=== PATIENT | male | born 1960 | race Caucasian/White ===

== ENCOUNTER 2024-06-21 17:34 | Inpatient (IN) | payer OTHER, SELFPAY ==
[2024-06-21] VITALS (10 sets, daily range): BP systolic 91–152; BP diastolic 63–113; BMI 24.8; BMI 25.0
--- NOTE | 2024-06-21 11:18 | ED.GENMED ---
History of Present Illness
<Kely Shaffer PA-C - Last Filed: 06/21/24 18:01>
General
Chief Complaint: Abdominal Pain
Source: patient
Exam Limitations: none
Time Seen by Provider: 06/21/24 11:18
Nursing documentation reviewed up to this point in time: agreed with
History of Present Illness
History of Present Illness:
Patient is a 64-year-old male presenting with right abdominal pain. Patient reports intermittent pain in upper abdomen over the past 2 weeks which has always self resolved. However�patient states that last night prior to bed he had a much more
intense pain in his upper abdomen. This did subside and patient was able to sleep. This morning around 9:30 AM while he was driving his car he had a severe, stabbing pain in his right upper abdomen. This does sometimes radiate to mid back. Pain
has been constant since this morning. He did call his primary care provider who recommended he be seen in the emergency department.
Patient denies any associated nausea, vomiting, fever, chills, or chest pain. No urinary symptoms. He denies any shortness of breath�although does state that it is painful to take a deep breath.
Patient cannot remember what he ate for dinner last night.
Review of Systems
<Kely Shaffer PA-C - Last Filed: 06/21/24 18:01>
Review of Systems
Allergies reviewed?: Yes
All Other Systems: ROS reviewed and negative except as documented in HPI and ROS
Phy Exam
<Kely Shaffer PA-C - Last Filed: 06/21/24 18:01>
Physical Exam
Physical Exam:
Vitals: Patient's vital signs are stable. Afebrile
General: Patient is writhing in pain.
Skin: Warm and dry, no rashes or lesions
Head: Normocephalic, atraumatic
Eyes: Sclera nonicteric. EOMs intact. No nystagmus.
Throat: Protecting airway
Neck: Normal ROM, no cervical spine tenderness, no meningismus
Cardiac: Regular rate and rhythm, no murmurs.
Pulm: Lungs clear bilaterally. Shallow breathing due to pain.
Abdomen: Abdomen soft. Moderate right upper quadrant tenderness with voluntary guarding. Positive Rendon sign. No CVA tenderness
Extremities: No evidence of cyanosis or edema. Palpable and equal distal pulses.
Neuro: AAOx3. CN II-XII intact. No focal neurologic deficits.
Psychiatric: Normal affect.
Course
<Kely Shaffer PA-C - Last Filed: 06/21/24 18:01>
Orders/Labs/Results
Orders:
Orders
06/21/24 11:32
0.9% Sodium Chloride 1000 ml [Nss] 1,000 ml IV BOLUS
HYDROmorphone [Dilaudid] 0.5 mg IV NOW STA
Ondansetron Injectable [Zofran] 4 mg IV NOW STA
06/21/24 11:35
Electrocardiogram (*1) Urgent
Reason for Study: QTc Monitoring
EKG- Treatment ONCE
US Abdomen Complete/Upper Urgent
Comment:
Reason For Exam: RUQ pain radiating to back
06/21/24 11:50
Complete Blood Count/With Diff Urgent
06/21/24 13:35
Comprehensive Metabolic Panel Urgent
Lipase Urgent
06/21/24 14:15
Comprehensive Metabolic Panel Urgent
Lipase Urgent
06/21/24 14:25
CT Chest/abd/pelvis Angio W/wo Urgent
Comment:
Reason For Exam: Upper abdominal pain/ back pain
06/21/24 14:28
Diltiazem HCl [Cardizem] 5 mg IV NOW STA
06/21/24 15:00
Diltiazem 125 mg/125 ml Nss [Cardizem] 125 mg in 125 ml IV PER PROTOCOL
Initial dose in mg/hr, then titrate:: 5
Titrate to keep:: Heart rate 80-100 bpm
Titrate by mg/hr:: 5 mg/hr
Frequency of titrations (minutes):: 15
Maximum dose in mg/hr:: 15
06/21/24 16:33
Admit/Transfer Patient As Directed
Co-Sign Provider:
Level of Care: Inpatient admission
Assign to:: IMU- Intermediate Care
Physician / Group: Stefan Ceballos
Diagnosis: A-Fib RVR
Reason for Hospitalization: A-Fib RVR
Expected length of stay greater than two midnights?: Yes
ELOS- Estimated Length of Stay in days: 3
I certify the patient meets the requirements for IP care: Yes
06/21/24 16:34
PRN Pain Medication Management As Directed
May give lesser potent ordered pain med per pt: Yes
preference::
Protocol:: Medication orders for pain may be administered in a
manner that supports deferring to patient preference
when the pt is:
- Requesting an ordered lesser potent pain medication.
Least to most potent pain medications are defined
as: acetaminophen < NSAID < tramadol < opioids
(morphine, oxycodone, hydromorphone).
- Requesting a lesser dose of the same medication IF
ORDERED.
- Requesting a less intrusive route of administration
if both routes are prescribed by the provider (PO <
IV).
06/21/24 16:35
Code Status As Directed
Resuscitation Status: Full Code
06/21/24 17:00
NT-proBNP Stat
Troponin I Stat
06/21/24 17:03
HYDROmorphone [Dilaudid] 0.25 mg IV Q4HPRN PRN
Ketorolac [Toradol] 15 mg IV Q6HPRN PRN
Abnormal Lab Results
06/21/24
11:50
WBC 12.4 H 10^3/uL
(4.8-10.8)
MCH 32.0 H pg
(27.0-31.0)
Abs Immat Gran (auto) 0.1 H 10^3/uL
(0-0.05)
Absolute Neuts (auto) 10.5 H 10^3/uL
(1.4-6.5)
Absolute Lymphs (auto) 1.1 L 10^3/uL
(1.2-3.4)
Absolute Monos (auto) 0.7 H 10^3/uL
(0.1-0.6)
Neutrophils % 84.0 H %
(42.2-75.2)
Lymphocytes % 8.8 L %
(20.5-51.1)
06/21/24 11:50
06/21/24 14:15
Vital Signs
Initial and Last Documented VS:
Initial Vital Signs
Temp Pulse Resp Pulse Ox
98.3 F 96 18 99
06/21/24 10:58 06/21/24 10:58 06/21/24 10:58 06/21/24 10:58
Last Documented Vital Signs
Temp Pulse Resp BP Pulse Ox
98.3 F 105 26 122/96 96
06/21/24 10:58 06/21/24 17:15 06/21/24 17:15 06/21/24 17:00 06/21/24 17:15
<Liban Burdick, DO - Last Filed: 06/21/24 15:51>
Orders/Labs/Results
Orders:
Orders
06/21/24 11:32
0.9% Sodium Chloride 1000 ml [Nss] 1,000 ml IV BOLUS
HYDROmorphone [Dilaudid] 0.5 mg IV NOW STA
Ondansetron Injectable [Zofran] 4 mg IV NOW STA
06/21/24 11:35
Electrocardiogram (*1) Urgent
Reason for Study: QTc Monitoring
EKG- Treatment ONCE
US Abdomen Complete/Upper Urgent
Comment:
Reason For Exam: RUQ pain radiating to back
06/21/24 11:50
Complete Blood Count/With Diff Urgent
06/21/24 13:35
Comprehensive Metabolic Panel Urgent
Lipase Urgent
06/21/24 14:15
Comprehensive Metabolic Panel Urgent
Lipase Urgent
06/21/24 14:25
CT Chest/abd/pelvis Angio W/wo Urgent
Comment:
Reason For Exam: Upper abdominal pain/ back pain
06/21/24 14:28
Diltiazem HCl [Cardizem] 5 mg IV NOW STA
06/21/24 15:00
Diltiazem 125 mg/125 ml Nss [Cardizem] 125 mg in 125 ml IV PER PROTOCOL
Initial dose in mg/hr, then titrate:: 5
Titrate to keep:: Heart rate 80-100 bpm
Titrate by mg/hr:: 5 mg/hr
Frequency of titrations (minutes):: 15
Maximum dose in mg/hr:: 15
06/21/24 16:33
Admit/Transfer Patient As Directed
Co-Sign Provider:
Level of Care: Inpatient admission
Assign to:: IMU- Intermediate Care
Physician / Group: Stefan Ceballos
Diagnosis: A-Fib RVR
Reason for Hospitalization: A-Fib RVR
Expected length of stay greater than two midnights?: Yes
ELOS- Estimated Length of Stay in days: 3
I certify the patient meets the requirements for IP care: Yes
06/21/24 16:34
PRN Pain Medication Management As Directed
May give lesser potent ordered pain med per pt: Yes
preference::
Protocol:: Medication orders for pain may be administered in a
manner that supports deferring to patient preference
when the pt is:
- Requesting an ordered lesser potent pain medication.
Least to most potent pain medications are defined
as: acetaminophen < NSAID < tramadol < opioids
(morphine, oxycodone, hydromorphone).
- Requesting a lesser dose of the same medication IF
ORDERED.
- Requesting a less intrusive route of administration
if both routes are prescribed by the provider (PO <
IV).
06/21/24 16:35
Code Status As Directed
Resuscitation Status: Full Code
06/21/24 17:00
NT-proBNP Stat
Troponin I Stat
06/21/24 17:03
HYDROmorphone [Dilaudid] 0.25 mg IV Q4HPRN PRN
Ketorolac [Toradol] 15 mg IV Q6HPRN PRN
Abnormal Lab Results
06/21/24
11:50
WBC 12.4 H 10^3/uL
(4.8-10.8)
MCH 32.0 H pg
(27.0-31.0)
Abs Immat Gran (auto) 0.1 H 10^3/uL
(0-0.05)
Absolute Neuts (auto) 10.5 H 10^3/uL
(1.4-6.5)
Absolute Lymphs (auto) 1.1 L 10^3/uL
(1.2-3.4)
Absolute Monos (auto) 0.7 H 10^3/uL
(0.1-0.6)
Neutrophils % 84.0 H %
(42.2-75.2)
Lymphocytes % 8.8 L %
(20.5-51.1)
06/21/24 11:50
06/21/24 14:15
Vital Signs
Initial and Last Documented VS:
Initial Vital Signs
Temp Pulse Resp Pulse Ox
98.3 F 96 18 99
06/21/24 10:58 06/21/24 10:58 06/21/24 10:58 06/21/24 10:58
Last Documented Vital Signs
Temp Pulse Resp BP Pulse Ox
98.3 F 105 26 122/96 96
06/21/24 10:58 06/21/24 17:15 06/21/24 17:15 06/21/24 17:00 06/21/24 17:15
<Kely Shaffer PA-C - Last Filed: 06/21/24 18:01>
MDM/Problems Addressed
Differential Diagnosis Includes:
Not limited to: Biliary colic, cholecystitis, choledocholithiasis, cholangitis, pancreatitis, GERD, peptic ulcer, etc.
MDM/Problems Addressed:
64-year-old male presenting with severe right upper quadrant pain with radiation around to mid back. No associated fever, chills, nausea/vomiting. No urinary symptoms. Patient with history of intermittent upper abdominal pain becoming constant
this morning. Vital stable. Exam as above. Patient very uncomfortable, writhing in pain. Abdomen is soft with moderate right upper quadrant tenderness and positive Rendon sign. There is no rash or ecchymoses. Differential broad at this time
although high suspicion for biliary etiology given history and physical exam considerations include including biliary colic, cholecystitis, choledocholithiasis, pancreatitis, etc. No chest pain or shortness of breath. Will check basic labs, lipase
and obtain abdominal ultrasound. Will treat pain and give IV fluids. Will closely monitor and reassess.
Chronic conditions affecting care:
N/A
Acute Exacerbation and/or Progression of Chronic Illness:
N/A
<Kely Shaffer PA-C - Last Filed: 06/21/24 18:01>
*Radiology
Radiology exam reviewed: preliminary read by ED provider and radiology read reviewed (No aortic abnormality, concern for malignant process in the liver vs metastatic disease)
*Pulse Oximetry
Patient hypoxic: no
*EKG
Interpreted by ED Provider?: Yes
EKG Intrepretation Date: 06/21/24
Interpretation: abnormal
Comparison EKG: no comparison EKG present
Heart Rate: 95
Rate: normal
Rhythm: a-fib
[place]: normal axis
Interval: normal interval
QRS Pattern: normal QRS
Ischemia: no ischemia
*Electron Beam Photo Mask Technician Interpretation
Rate: tachycardiac
Interpretation: abnormal
Heart Rate: 121
Rhythm: a-fib
*Critical Care Note
Total Time (30-74mins, 75-104mins- exclusive of procedures): Not Applicable
<Kely Shaffer PA-C - Last Filed: 06/21/24 18:01>
Patient Management
Discussion with other providers: Hospitalist
Escalation/DeEscalation of care consider admission/obs:
Admit to hospitalist for new onset A-fib w/ RVR
<Kely Shaffer PA-C - Last Filed: 06/21/24 18:01>
Update Note
Update Note:
Update 12:30PM: In to reassess patient at bedside. Patient appears much more comfortable following pain medication. CBC noted. Mild leukocytosis. CMP and US pending.
Update 2:15 PM: Chemistry reviewed. No abnormalities. Ultrasound without any acute findings. EKG does show rate controlled atrial fibrillation. This is new for patient. Into reassess patient at bedside with attending-does report improvement in
symptoms although given the symptoms and negative abdominal workup will obtain CTA chest/abdomen/pelvis to rule out aortic pathology. Patient heart rate did go into A-fib with RVR�will start Cardizem.
Update: CT report reviewed. No aortic pathology. Lesions noted in liver concerning for malignancy versus metastatic disease. Patient started on Cardizem drip for A-fib and will be admitted for further management. Accepted to hospitalist service
and stable condition.
ED Attending Note
<Kely Shaffer PA-C - Last Filed: 06/21/24 18:01>
-
Portions of this chart may have been created with voice recognition software.� Occasional wrong word or��sound alike� substitutions may have occurred due to the inherent limitations of voice recognition software.
<Liban Burdick DO - Last Filed: 06/21/24 15:51>
ED Attending Note
Patient seen and examined by attending physician: Yes
I performed a history and physical exam of patient and discussed management with resident, I reviewed resident's note and agree with documented findings and plan of care.: Yes
ED Attending Note:
I have reviewed and agree with history and treatment plan by Kely Prince. My exam revealed
Physical Exam
General: Afebrile
Neck: supple. no meningeal signs. normal posterior pharynx
Heart: s1/s2 tachycardia, irregular rhythm, no murmur. equal radial
pulses.
HEENT: Pupils equal round reactive to light, EOMI
Lungs: no acute respiratory distress. clear bilaterally
Abdomen: normal bowel sounds. Mild epigastric tenderness no CVAT
Neuro: alert and oriented. no focal neurological deficits cranial nerves II through XII intact
Skin: no rash
Psychiatric: well kept. interactive and cooperative
Extremities: no edema. no calf tenderness. negative homans. good distal pulses
Patient has abdominal pain of unclear etiology, liver masses seen on ultrasound and CT abdomen pelvis. Patient started on diltiazem drip for new onset A-fib. Admit for further evaluation.
Discharge Plan
Departure
Patient Disposition: Admit
Date of Disposition: 06/21/24
Time of Disposition: 16:14
Presentation/result/management discussed w/ accepting MD/DO: Hospitalist
Discharge Problem:
Atrial fibrillation with rapid ventricular response, Intractable upper abdominal pain
Interventions
Interventions:
*Risk Screen - Suicide Last Done: 06/21/24 10:58
*General Assessment Last Done: 06/21/24 11:47
*Neglect/Abuse Screening Last Done: 06/21/24 10:58
ED- Fall Risk Assessment Last Done: 06/21/24 11:54
*ED COVID-19 Vaccine History Last Done: 06/21/24 10:58
JJ-Gllwih-Htouauyxyb Assessment Last Done: 06/21/24 11:54
--- NOTE | 2024-06-21 11:48 | EDRN ---
Pt was driving his and developed in his abdomen in RUQ and some radiation/residual pain in back. Pt also feeling difficulty swalling in his sternal/epigastric area. Pain was worse last night was worse and knifelike at 9:30am today. pt has an
appt on .
[2024-06-21] MEDS: NSS 1000 IV (11:51)
[2024-06-21] MEDS: ZOFRAN 4 MG IV (11:51)
[2024-06-21] MEDS: DILAUDID 0.5 MG IV (11:52)
[2024-06-21 12:01] LABS: % Basophils 0.6 % (0-2); % Eosinophils 0.6 % (0-6); % Immature Granulocytes 0.4 % (0-0.5); % Lymphocytes 8.8 % (20.5-51.1); % Monocytes 5.6 % (1.7-9.3); Absolute Basophils 0.1 10^3/uL (0-0.2); Absolute Eosinophils 0.1 10^3/uL (0-0.7); Absolute Immature Granulocytes 0.1 10^3/uL (0-0.05); Absolute Lymphocytes 1.1 10^3/uL (1.2-3.4); Absolute Monocytes 0.7 10^3/uL (0.1-0.6); Absolute Neutrophils 10.5 10^3/uL (1.4-6.5); Hematocrit 44.2 % (39.0-52.0); Hemoglobin 15.4 g/dL (13.0-18.0); Mean Corp Hgb Conc. 34.8 g/dL (33.0-37.0); Mean Corpuscular Volume 91.9 fL (80.0-94.0); Mean Platelet Volume 9.8 fL (7.4-10.4); Nucleated Red Blood Cells % 0 % (-); Platelet Count 282 10^3/uL (130-400); Red Blood Cell Count 4.81 10^6/uL (4.70-6.10); Red Cell Dist. Width 13.4 % (11.5-14.5); White Blood Cell Count 12.4 10^3/uL (4.8-10.8)
--- NOTE | 2024-06-21 13:54 | EDRN ---
SST blood tube that was just drawn was deemed hemolyzed musician instrumental asked if ED PCT could redraw blood to send to lab.
[2024-06-21 14:12] LABS: ALT (SGPT) 33 U/L (0-50); AST (SGOT) 38 U/L (17-59); Albumin 3.9 g/dl (3.5-5.0); Alkaline Phosphatase 93 U/L (38-126); Blood Urea Nitrogen 13 mg/dl (9-20); Calcium 8.6 mg/dl (8.4-10.2); Carbon Dioxide 25 mmol/L (22-30); Chloride 105 mmol/L (98-107); Estimated Creatinine Clearance 92 ml/min; Glucose 74 mg/dl (70-99); Lipase 47 U/L (23-300); Potassium 4.3 mmol/L (3.5-5.1); Sodium 141 mmol/L (135-145); Total Bilirubin 0.7 mg/dl (0.2-1.3); Total Protein 6.3 g/dl (6.3-8.2); eGFR > 60.00
--- NOTE | 2024-06-21 14:15 | EDRN ---
Pt had SST hemolyzed and was just redrawn by [place] ED PCT at this time.
[2024-06-21 14:49] LABS: ALT (SGPT) 32 U/L (0-50); AST (SGOT) 39 U/L (17-59); Alkaline Phosphatase 94 U/L (38-126); Blood Urea Nitrogen 13 mg/dl (9-20); Calcium 8.9 mg/dl (8.4-10.2); Carbon Dioxide 24 mmol/L (22-30); Chloride 106 mmol/L (98-107); Estimated Creatinine Clearance 92 ml/min; Glucose 77 mg/dl (70-99); Lipase 42 U/L (23-300); Potassium 4.4 mmol/L (3.5-5.1); Sodium 141 mmol/L (135-145); Total Bilirubin 0.7 mg/dl (0.2-1.3); Total Protein 6.5 g/dl (6.3-8.2); eGFR > 60.00
[2024-06-21] MEDS: CARDIZEM 5 MG IV (15:50)
[2024-06-21] MEDS: CARDIZEM 125 IV (15:53)
--- NOTE | 2024-06-21 16:38 | HPS.HSE ---
Family Physician
-
Family Physician: Dioni Monroy
Chief Complaint
-
abdominal pain
History of Present Illness
HPI
64M seen at ER :
- intermittent pain in Rt upper abdomen over the past 2 weeks always resolved spontaneusly
- last night prior to bed he had a much more intense pain did subside and patient was able to sleep
- severe stabbing pain in Rt upper abdomen radiate to mid back and been constant since this AM.
EKG at ER : fast AF
ROS
- denies any associated nausea, vomiting, fever, chills, or chest pain.
- no urinary symptoms.
- denies any shortness of breath
Medical History
Past Medical History
Past Medical History: Reports Psychiatric (depression )
Past Surgical History: Reports None
Social History
Tobacco: Non-smoker
Alcohol: Former (quit 10 yrs ago. Used to dring 1 6 packs per week for 20 yrs )
Employment: Employed ([employer] contractor )
Family History
Family History: Not pertinent
Allergies / Home Medications
Allergies reflects when Allergies were last updated in [employer].
Home Medications with original date entered in [employer]
Allergy/Medication List:
Allergies
Allergy/AdvReac Type Severity Reaction Status Date / Time
hayfever Allergy nasal Uncoded 06/21/24 11:06
congestion
Home Medications
divalproex 500 mg tablet,delayed release 1,000 mg PO DAILY 06/21/24
Review of Systems
-
Constitutional: Reports No Symptoms
EENT: Reports No Symptoms
Respiratory: Reports No Symptoms
Cardiac: Reports No Symptoms
Abdomen/GI: Reports Abdominal Pain
: Reports No Symptoms
Musculoskeletal: Reports No Symptoms
Skin: Reports No Symptoms
Neurological: Reports No Symptoms
Endocrine: Reports No Symptoms
Hematologic/Lymphatic: Reports No Symptoms
Psych: Reports No Symptoms
Physical Exam
Vital Signs
Vital Signs
Temp Pulse Resp BP Pulse Ox
98.3 F 146 30 137/108 98
06/21/24 10:58 06/21/24 16:15 06/21/24 16:15 06/21/24 16:01 06/21/24 16:15
Physical Exam
General: Well Developed, Well Nourished and No Apparent Distress
HEENT: NormoCephalic, Moist mucous membranes and Atraumatic
Respiratory: Clear
Cardiac: Irregular Rhythm and Tachycardia
GI: Soft, Non Tender, Non Distended and Normal Bowel Sounds; No Organomegaly
Rectal: Deferred by Provider
Musculoskeletal: No Clubbing, No Cyanosis and No Edema
Skin: No Rash
Neuro: Nonfocal/grossly intact
Laboratory Results
-
06/21/24 11:50
06/21/24 14:15
Laboratory Results
Total Bilirubin 0.7 mg/dl (0.2-1.3) 06/21/24 14:15
AST 39 U/L (17-59) 06/21/24 14:15
ALT 32 U/L (0-50) 06/21/24 14:15
Alkaline Phosphatase 94 U/L (38-126) 06/21/24 14:15
Lipase 42 U/L (23-300) 06/21/24 14:15
Data Reviewed
-
CT Scan: Report Reviewed by me
Medical Tests (Nuc Med, Echo, EKG etc): Report Reviewed by me
Lab Data: Labs Reviewed by me
Impression/Plan
-
Reviewed VS: irregular HR 138 BP 140/100
Data
WCC 12.4
Unremarkable CMP
Pending TPNI
proBNP
EKG
ATRIAL FIBRILLATION
ABNORMAL ECG
NO PREVIOUS ECGS AVAILABLE
CT Chest/abd/pelvis Angio W/wo
No evidence of thoracic/abdominal aortic aneurysm or dissection.
At least three similar appearing lesions within the right lobe of the liver largest measuring 9.2 cm which do not have imaging characteristics suggestive of benign hemangiomas. Most likely differential diagnostic possibilities include multifocal
hepatocellular carcinoma, biliary tract carcinoma or metastatic disease.
Evaluation of intestinal tract markedly limited without oral contrast, cannot exclude intestinal tract mass.
Small simple left renal cysts and additional subcentimeter low-attenuation left renal lesion too small to characterize.
Prostate gland at least top normal in size.
Suspected indeterminate approximate 0.8 cm left adrenal nodule.
NO PRIOR hospitalist admission:
ASSESSMENT & PLAN
Fast AF
Hemodynamically stable
- c/w Diltiazem gtt
- check TPNI, pro BNP
- ECHO
- CBC card consult
Acute intermittent abdominal pain. No N/V/D. Denied wt loss
Abn CT:
Questionable intestinal mass
Questionable multifocal hepatocellular carcinoma, biliary tract carcinoma or metastatic disease.
Of note: No prior HX Hep C. Quit ETOH 10 yrs ago ( used to drink 1 6 packs beer per week for 20 yrs)
- full liquid and ADAT
- PRN low dose IV Dilaudid for analgesia
- MRI AP with contrast - if abn MRI - to consult GI
HX depression and anxiety on Depakote
- stable
DVT Px: LMWH
Full code
IMU
--- NOTE | 2024-06-21 16:50 | EDRN ---
Pt teary eyed about diagnosis and in pain at 10/10 at this time in RUQ of abdomen. Family has just arrived and pt is awaiting them to come back to see him.
[2024-06-21] MEDS: DILAUDID 0.25 MG IV (17:35)
[2024-06-21 18:46] LABS: NT-proBNP 585 pg/ml; Troponin I < 0.012 ng/ml
[2024-06-21] MEDS: HEPARIN 5000 UNITS SC (20:36)
[2024-06-21] MEDS: TORADOL 15 MG IV (21:22)
--- NOTE | 2024-06-21 22:50 | PTCARENOTE ---
pt admitted from the ED- pt is AAOx3- pt is able to make needs known. VSS- a-fib on the monitor. cardizem gtt infusing at 5mg/hr. HR 90s-100s at rest. when patient ambulating or on the phone, HR increases to 130s-140s. pt is asymptomatic. pt able to
walk into room without issues. ambulating to BR. pt in 8/10 pain to right lower abdomen. stating the 0.25mg IV dilaudid dose he got in the ER only helped for 30 minutes. reached out to covering CHIEF MEDICAL TECHNOLOGIST to change dose, no new orders at this time. IV
toradol given per OCT, pt reports some relief. pt tearful at times with diagnosis. positive environment and support given to patient.
[2024-06-22] VITALS (12 sets, daily range): BP systolic 108–151; BP diastolic 55–99
[2024-06-22 00:18] LABS: Troponin I < 0.012 ng/ml
[2024-06-22] MEDS: DILAUDID 0.25 MG IV ×3 (01:18→17:10)
[2024-06-22] MEDS: TORADOL 15 MG IV (05:05)
[2024-06-22 05:15] LABS: Hemoglobin 15.3 g/dL (13.0-18.0); Mean Corp Hgb Conc. 34.8 g/dL (33.0-37.0); Mean Corpuscular Hgb 32.3 pg (27.0-31.0); Mean Platelet Volume 9.9 fL (7.4-10.4); Platelet Count 258 10^3/uL (130-400); Red Blood Cell Count 4.73 10^6/uL (4.70-6.10); Red Cell Dist. Width 13.4 % (11.5-14.5)
[2024-06-22 05:33] LABS: Blood Urea Nitrogen 13 mg/dl (9-20); Carbon Dioxide 26 mmol/L (22-30); Chloride 104 mmol/L (98-107); Estimated Creatinine Clearance 83 ml/min; Glucose 88 mg/dl (70-99); Potassium 4.6 mmol/L (3.5-5.1); Sodium 143 mmol/L (135-145); eGFR > 60.00
[2024-06-22 05:44] LABS: Troponin I < 0.012 ng/ml
[2024-06-22 06:15] LABS: TSH 4.11 uIU/ml (0.47-4.68)
--- NOTE | 2024-06-22 08:30 | CON.CAR ---
Addendum entered and electronically signed by Henrik Carroll MD 06/22/24 10:40:
64 yo male with no significant cardiac history is admitted with abdominal pain. There is concern for liver malignancy, and he will undergo MRI today. We are consulted for new Afib with RVR. He is asymptomatic with the Afib. Exam with irregular
rhythm, no murmurs, no edema. Tele: A fib 60s-70s.
Will focus on rate control as possible liver malignancy is evaluated. Transition IV diltiazem to PO. Check echo.
CHADS2-VASC =0. No OAC recommended at this time.
Original Note:
Consultation
Consultation Request
Date/Time Consultation Requested: 06/21/241999
Date/Time Consultation Performed: 06/22/24 08
Requesting Provider: Sia BARAHONA
Performing Provider: Janis BARAHONA for Dr. Carroll
Reason for Consultation: AFIB
Medical History
-
Chief Complaint: abdominal pain
History of Present Illness:
64 y/o male with depression and anxiety who is here for severe abdominal pain (RUQ) that started yesterday AM around 1030 AM. Imaging reveals liver lesions concerning for malignancy. We are consulted for AFIB with RVR, which is rate-controlled on
diltiazem drip at 5 mg/hr. He is not symptomatic with the atrial fibrillation.
Past Medical History
Past Medical History: Psychiatric (depression and anxiety )
Social History
Tobacco: Non-Smoker
Alcohol: Former (used to drink 6 pack per week- but not in many years)
Personal:
Living: With Family
Family History
Family History: Early CAD (mom [place] 55, dad [place] in his 30's)
Allergies / Home Medications
Allergy/AdvReac Type Severity Reaction Status Date / Time
hayfever Allergy nasal Uncoded 06/21/24 11:06
congestion
�Medication �Instructions �Recorded �Confirmed �Type
divalproex 500 mg tablet,delayed 1,000 mg PO DAILY Seizures 06/21/24 06/21/24 History
release
zolpidem 10 mg tablet (Ambien) 10 mg PO HS PRN sleep 06/21/24 06/21/24 History
Review of Systems
-
History Source: Patient
All other systems: Negative unless noted
Abdomen/GI: Abdominal Pain
Physical Exam
Vital Signs
Temp Pulse Resp BP Pulse Ox
97.7 F 85 17 137/97 94
06/22/24 05:13 06/22/24 06:00 06/22/24 06:00 06/22/24 06:00 06/21/24 22:00
Lab Results
06/22/24 05:04
06/22/24 05:04
Troponin I < 0.012 ng/ml 06/22/24 05:04
Skd-L-Pwtteotmrav Pept 585 pg/ml 06/21/24 17:00
Zaj-O-Eneyprdinql Pept Cancelled 06/21/24 17:00
Physical Exam
General: Well Developed, Well Nourished and No Apparent Distress
HEENT: Normocephalic and Anicteric
Respiratory: Clear and Non Labored Respirations
Cardiac: Irregular Rhythm
Musculoskeletal: No Edema
Skin: Warm and Dry
Neuro: AO x 3
Psych: Calm
Impression / Plan
-
Abdominal pain: severe yesterday, now appears comfortable
-getting pain meds
-Liver lesions: concerning for malignancy- plan is MRI today for further evaluation
-work-up per IM
AFIB: new diagnosis
-in setting of acute pain/stress
-appears to be paroxysmal as there are some brief periods of SR on monitor
-on IV diltiazem drip, which requires intensive monitoring- will adjust to PO meds today
-[id number] score is 0, so OAC not required at this time
-TSH WNL, echo today
Anxiety, depression:
-takes divalproex and nefazodone as OP
Data Reviewed
-
EKG: Tracing Personally Visualized and interpreted (AFIB)
CT Scan: Report Reviewed by me (At least three similar appearing lesions within the right lobe of the liver largest measuring 9.2 cm)
Medical Tests (Nuc Med, Echo etc): Other (echo ordered)
Labs: Labs Reviewed by me
[2024-06-22] MEDS: HEPARIN 5000 UNITS SC ×2 (08:33→19:57)
[2024-06-22] MEDS: DEPAKOTE (12 HR RELEASE) 1000 MG PO (08:33)
[2024-06-22] MEDS: CARDIZEM CD 120 MG PO (09:25)
[2024-06-22 09:27] LABS: Glycohemoglobin (HgbA1c) 5.5 % (4.0-5.6)
--- NOTE | 2024-06-22 10:31 | W.PN.HOSP.TC ---
Today's Communication/Plan
-
seen note
Assessment / Plan
Assessment / Plan
CT Chest/abd/pelvis Angio W/wo
No evidence of thoracic/abdominal aortic aneurysm or dissection.
At least three similar appearing lesions within the right lobe of the liver largest measuring 9.2 cm which do not have imaging characteristics suggestive of benign hemangiomas. Most likely differential diagnostic possibilities include multifocal
hepatocellular carcinoma, biliary tract carcinoma or metastatic disease.
Evaluation of intestinal tract markedly limited without oral contrast, cannot exclude intestinal tract mass.
Small simple left renal cysts and additional subcentimeter low-attenuation left renal lesion too small to characterize.
Prostate gland at least top normal in size.
Suspected indeterminate approximate 0.8 cm left adrenal nodule.
MRI abd
1. Multiple space occupying liver lesions with the largest measuring 9.6 cm in the right hepatic lobe, most suspicious for hepatic metastases. Hepatocellular carcinoma or cholangiocarcinoma with satellite lesions would be an alternative
consideration.
2. Circumferential wall thickening and signal alteration of the distal esophagus above the gastroesophageal junction. While findings could be related to inflammatory changes of a small hiatal hernia, a distal esophageal malignancy may be present.
Consider direct visualization/upper endoscopy for further characterization.

1. Suspected metastatic liver disease
Suspected primary esophageal cancer
-CT c/a/p findings as above
-MRI abd showing DENICE in liver with potential primary in distal esophagus vs billary tract
-Oncology and GI consulted for further evaluation
-Maintain on oral oxycodone with PRN dialudid for pain control
2. Paroxysmal afib w RVR
-off of cardiazem drip
-started on oral rate control med
-low CHADvasc and no indication for AC
-Cardiology help appreciated
3. Anxiety
-provide xanax prn
4. H/o depression
-on depakote
DVT Px: LMWH
Full code
Total time spent : 52 mins
Anticipated Discharge: 24 - 48 hours
Subjective/Interval History
-
Date of Service: June 22, 2024
no abd pain
denies n/v
afebrile
Objective Data
-
Labs:
Laboratory Results
06/22/24
05:04
WBC 10.0
Hgb 15.3
Hct 44.0
Plt Count 258
Sodium 143
Potassium 4.6
Chloride 104
Carbon Dioxide 26
BUN 13
Creatinine 1.0
Glucose 88
Calcium 9.0
Vital Signs:
Vital Signs
Temp Pulse Resp BP Pulse Ox
97.7 F 87 15 127/94 98
06/22/24 07:30 06/22/24 10:00 06/22/24 08:00 06/22/24 10:00 06/22/24 08:00
I&O
06/21/24 06/22/24 06/23/24
06:59 06:59 06:59
Output Total 600 / 600
Balance -600 / -600
Review of Systems
-
Respiratory: Reports No Symptoms
Cardiac: Reports No Symptoms
Abdomen/GI: Reports No Symptoms
Physical Exam
-
General: No Apparent Distress and Comfortable
HEENT: Negative Oxygen
Respiratory: Clear to Auscultation
Cardiac: Regular Rhythm and S1/S2; Negative Murmur or Rub
GI: Soft, Nontender, Nondistended and Normal Bowel Sounds
Musculoskeletal: No Edema
Neuro: Awake, Alert, Oriented, No Motor Deficits and Nonfocal/Grossly Intact
Psych: Calm
[2024-06-22] MEDS: ROXICODONE 10 MG PO ×3 (10:38→22:47)
[2024-06-22] MEDS: ALPRAZOLAM ODT 0.5 MG PO (11:13)
--- NOTE | 2024-06-22 11:17 | CON.ONC ---
Impression
Impression
64 y/o M with upper abdominal pain and clinical suspicion for liver malignancy vs metastatic disease:
# Abdominal pain
- Abd/pelvis CT suggestive of multifocal HCC, biliary tract cancer, or metastatic disease
- Abdomen MRI for further evaluation of hepatic lesions seen on CT and other abdominal structures
- Check tumor markers (AFP, CA 19-9 and CEA)
- LFTs and Lipase WNL
- Hep B/C pending
- Will follow along
# Paroxismal Afib with RVR
- Likely in the setting of pain
- Cardiology following
- Continue Diltiazem
# Anxiety/depression
- Continue home meds
Patient History
History of Present Illness
64 y/o male former smoker and drinker presenting with intermittent upper abdominal pain since 2 weeks ago that resolved spontaneously. Pt is very stressed with his job and felt his abdominal pain was because of that. Starting Thursday06/20/24, the
pain became severe (predominantly in the RUQ) radiating to his back and aggravated with breathing and leaning forward. Denies weight loss, change in appetite/bowel movements/color of urine but notes difficulty swallowing food recently. Has no
history of liver disease, family history is negative for cancer. Patient was found to have new Afib in the ER, started on Diltiazem. Pt notes he quit drinking 10 years ago and has since been drinking one can of beer per day if any (the most being 6
cans/week). Also quit smoking 30 years ago.
Chest/abd/pelvis CT:
Large peripherally enhancing soft tissue lesion in the right hepatic lobe measuring 7.5 * 8.5 * 9.2 cm with smaller similar-appearing lesions in the right lobe
0.8 cm indeterminate left adrenal nodule
Evaluation of intestinal tract markedly limited without oral contrast, cannot exclude intestinal tract mass.
Small simple left renal cysts and additional subcentimeter low-attenuation left renal lesion too small to characterize.
Prostate gland at least top normal in size.
Past-Medical/Surgical History
Past medical/surgical history:
Pneumonia
Knee surgery?
Anxiety/depression on divalproex and zolpidem
Patient Medication
�Medication �Instructions �Recorded �Confirmed �Last Taken �Type
divalproex 500 mg tablet,delayed 1,000 mg PO DAILY Seizures 06/21/24 06/21/24 Unknown History
release
zolpidem 10 mg tablet (Ambien) 10 mg PO HS PRN sleep 06/21/24 06/21/24 06/20/24 History
Active Medications
Generic Name Dose Route Start Last Admin
Trade Name Freq PRN Reason Stop Dose Admin
Alprazolam 0.25 mg 06/22/24 10:10
Alprazolam 0.25 Mg Oral Disintegrating Tab PO 07/20/24 10:09
Q6HPRN PRN
anxiety
Diltiazem HCl 120 mg 06/22/24 10:00 06/22/24 09:25
Diltiazem 120 Mg Extended Release (24 H) Capsule PO 07/20/24 09:59 120 mg
DAILY EVIN Administration
Divalproex Sodium 1,000 mg 06/22/24 08:00 06/22/24 08:33
Divalproex 500 Mg Delayed Release (12 Hr) Tablet PO 07/20/24 07:59 1,000 mg
DAILY EVIN Administration
Heparin Sodium 5,000 units 06/21/24 20:04 06/22/24 08:33
Heparin 5,000 Units/Ml 1 Ml Vial SC 07/19/24 20:03 5,000 units
Q12 EVIN Administration
Hydromorphone HCl 0.25 mg 06/22/24 10:15
Hydromorphone 0.25 Mg/0.5 Ml Syringe IV 07/05/24 17:02
Q4HPRN PRN
Breathrough pain
Oxycodone HCl 5 mg 06/22/24 10:14
Oxycodone 5 Mg Regular Release Tablet PO 07/06/24 10:13
Q4HPRN PRN
mod pain
Oxycodone HCl 10 mg 06/22/24 10:14 06/22/24 10:38
Oxycodone 10 Mg Regular Release Tablet PO 07/06/24 10:13 10 mg
Q4HPRN PRN Administration
sev pain
Polyethylene Glycol 17 grams 06/23/24 08:00
Polyethylene Glycol Powder 17 Grams Packet PO 07/21/24 07:59
DAILY EVIN
Sodium Chloride 0 flush 06/21/24 21:00
Sodium Chloride 0.9% (Flush) Syringe IV 07/19/24 20:59
PER PROTOCOL EVIN
Review of Systems
-
History Source: Patient
Constitutional: Reports No Symptoms
EENT: Reports No Symptoms
Respiratory: Reports No Symptoms
Cardiac: Reports No Symptoms
GI: Reports Abdominal Pain
: Reports No Symptoms
Musculoskeletal: Reports No Symptoms
Skin: Reports No Symptoms
Neuro: Reports No Symptoms
Endocrine: Reports No Symptoms
Hematologic/Lymphatic: Reports No Symptoms
Allergy / Immunology: Reports No Symptoms
Psych: Reports Anxious
Physical Exam
-
General: Well Developed, Well Nourished and No Apparent Distress
Cardiology: Normal Sinus Rhythm, S1 and S2
Pulmonary: Clear
GI: Soft and Hepatomegaly
Genito-Urinary: No Costovertebral Tenderness
Musculoskeletal: No Clubbing, No Cyanosis and No Edema
Neurology: Non Focal
Psych: Anxious
Labs
Lab Results
WBC 10.0 10^3/uL (4.8-10.8) 06/22/24 05:04
RBC 4.73 10^6/uL (4.70-6.10) 06/22/24 05:04
Hgb 15.3 g/dL (13.0-18.0) 06/22/24 05:04
Hct 44.0 % (39.0-52.0) 06/22/24 05:04
MCV 93.0 fL (80.0-94.0) 06/22/24 05:04
MCH 32.3 pg (27.0-31.0) H 06/22/24 05:04
MCHC 34.8 g/dL (33.0-37.0) 06/22/24 05:04
RDW 13.4 % (11.5-14.5) 06/22/24 05:04
Plt Count 258 10^3/uL (130-400) 06/22/24 05:04
MPV 9.9 fL (7.4-10.4) 06/22/24 05:04
Abs Immat Gran (auto) 0.1 10^3/uL (0-0.05) H 06/21/24 11:50
Absolute Neuts (auto) 10.5 10^3/uL (1.4-6.5) H 06/21/24 11:50
Absolute Lymphs (auto) 1.1 10^3/uL (1.2-3.4) L 06/21/24 11:50
Absolute Monos (auto) 0.7 10^3/uL (0.1-0.6) H 06/21/24 11:50
Absolute Eos (auto) 0.1 10^3/uL (0-0.7) 06/21/24 11:50
Absolute Basos (auto) 0.1 10^3/uL (0-0.2) 06/21/24 11:50
Immature Gran % 0.4 % (0-0.5) 06/21/24 11:50
Neutrophils % 84.0 % (42.2-75.2) H 06/21/24 11:50
Lymphocytes % 8.8 % (20.5-51.1) L 06/21/24 11:50
Monocytes % 5.6 % (1.7-9.3) 06/21/24 11:50
Eosinophils % 0.6 % (0-6) 06/21/24 11:50
Basophils % 0.6 % (0-2) 06/21/24 11:50
Creatinine 1.0 mg/dL (0.7-1.3) 06/22/24 05:04
Vital Signs
Vital Signs
Temp Pulse Resp BP Pulse Ox
97.7 F 87 15 127/94 98
06/22/24 07:30 06/22/24 10:00 06/22/24 08:00 06/22/24 10:00 06/22/24 08:00
--- NOTE | 2024-06-22 13:37 | CM ---
Patient seen at bedside in IMU. Patient states that he lives with his family in a 2 story home with no DME at home. Patient PCP Dr. Monroy and patient stated that he uses the [facility] in [place] and he does not have any needs at this
time. Patient was independent of ADL's and IADL's prior to admission. CM will continue to follow for discharge planning needs.
Plan; home with no needs at this time.
[2024-06-22 14:49] LABS: AFP Male/Tumor Marker 2.17 ng/ml
--- NOTE | 2024-06-22 15:20 | PTOTSP ---
Therapist spoke with the patient, who denies issues with mobility and exercises regularly. Patient is agreeable to PT signing off at this time and is aware our services are available if needs arise.
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
--- NOTE | 2024-06-22 16:58 | PTCARENOTE ---
Patient AOx3. Patient tearful intermittently support provided. A fib with periods of NSR on tele. Patient tolerating full liquid diet. Plan is for NPO at midnight for procedure tomorrow. Stand by assist when ambulating. Call smith within reach and
bed in lowest position.
--- NOTE | 2024-06-22 20:29 | PTCARENOTE ---
Pt received from [facility] RN. Pt AAOx3, pleasant and talking with staff. NSR on monitor currently, HR 64. Pt on RA, lungs clear to auscultation. NPO @ midnight tonight. HS oral care done by Pt. Pt rate abd pain 3/10 at the time being. Call light in
reach. Pt denies further needs at this time.
[2024-06-23] VITALS (14 sets, daily range): BP systolic 91–146; BP diastolic 46–102
[2024-06-23] MEDS: ROXICODONE 10 MG PO (05:13)
[2024-06-23 06:05] LABS: ALT (SGPT) 29 U/L (0-50); AST (SGOT) 33 U/L (17-59); Albumin 3.9 g/dl (3.5-5.0); Alkaline Phosphatase 79 U/L (38-126); Blood Urea Nitrogen 18 mg/dl (9-20); Calcium 9.2 mg/dl (8.4-10.2); Carbon Dioxide 25 mmol/L (22-30); Chloride 102 mmol/L (98-107); Direct Bilirubin 0.1 mg/dl (0.0-0.4); Estimated Creatinine Clearance 83 ml/min; Glucose 92 mg/dl (70-99); Potassium 4.9 mmol/L (3.5-5.1); Sodium 139 mmol/L (135-145); Total Bilirubin 0.6 mg/dl (0.2-1.3); Total Protein 6.4 g/dl (6.3-8.2); eGFR > 60.00
[2024-06-23 06:37] LABS: CEA 14.3 ng/ml
[2024-06-23 06:49] LABS: Hematocrit 42.6 % (39.0-52.0); Hemoglobin 14.7 g/dL (13.0-18.0); Mean Corp Hgb Conc. 34.5 g/dL (33.0-37.0); Mean Corpuscular Hgb 32.3 pg (27.0-31.0); Mean Corpuscular Volume 93.6 fL (80.0-94.0); Mean Platelet Volume 10.2 fL (7.4-10.4); Platelet Count 267 10^3/uL (130-400); Red Blood Cell Count 4.55 10^6/uL (4.70-6.10); Red Cell Dist. Width 13.7 % (11.5-14.5); White Blood Cell Count 8.8 10^3/uL (4.8-10.8)
[2024-06-23] MEDS: DEPAKOTE (12 HR RELEASE) 1000 MG PO (08:29)
[2024-06-23] MEDS: MIRALAX PO (08:29)
[2024-06-23] MEDS: CARDIZEM CD 120 MG PO (08:30)
--- NOTE | 2024-06-23 09:18 | W.PN.ONC ---
Today's Communication / Plan
-
Scheduled for EGD today
Awaiting CA 19-9
Impression
Impression
64 y/o M with upper abdominal pain and clinical suspicion for liver malignancy vs metastatic disease:
# Abdominal pain
- Abd/pelvis CT suggestive of multifocal HCC, biliary tract cancer, or metastatic disease
- Abdomen MRI: Multiple space occupying liver lesions with the largest measuring 9.6 cm in the right hepatic lobe, most suspicious for hepatic metastases. Hepatocellular carcinoma or cholangiocarcinoma with satellite lesions would be an alternative
consideration. Circumferential wall thickening and signal alteration of the distal esophagus above the gastroesophageal junction. While findings could be related to inflammatory changes of a small hiatal hernia, a distal esophageal malignancy may be
present.
- GI consulted, plan for EGD today
- AFP normal, HCC less likely
- CA 19-9 pending
- CEA elevated but non-specific for malignancy
- LFTs and Lipase WNL
- Hep B/C pending
- Discussed case with radiology yesterday and the plan for biopsy of liver lesion if other work-up nonsatisfactory
- Will follow along
# Paroxismal Afib with RVR
- Likely in the setting of pain
- Cardiology following
- Continue Diltiazem
# Anxiety/depression
- Continue home meds
Subjective/Objective
Subjective/Objective
Vital Signs:
Vital Signs
Temp Pulse Resp BP Pulse Ox
97.9 F 83 14 146/100 99
06/23/24 07:28 06/23/24 08:30 06/23/24 06:00 06/23/24 08:30 06/22/24 18:00
Lab Results:
Laboratory Data
WBC 8.8 10^3/uL (4.8-10.8) 06/23/24 06:09
Hgb 14.7 g/dL (13.0-18.0) 06/23/24 06:09
Plt Count 267 10^3/uL (130-400) 06/23/24 06:09
eGFR > 60.00 06/23/24 05:27
--- NOTE | 2024-06-23 10:00 | W.PN.HOSP.TC ---
Addendum entered and electronically signed by Bill dOell MD 06/23/24 13:51:
Oncology has recommended Predinsone 20mg/d short course to help with inflammation related to esophageal malignancy
Addendum entered and electronically signed by Bill Odell MD 06/23/24 10:05:
Correction:
transferred to tele
Original Note:
Today's Communication/Plan
-
see note
Assessment / Plan
Assessment / Plan
CT Chest/abd/pelvis Angio W/wo
No evidence of thoracic/abdominal aortic aneurysm or dissection.
At least three similar appearing lesions within the right lobe of the liver largest measuring 9.2 cm which do not have imaging characteristics suggestive of benign hemangiomas. Most likely differential diagnostic possibilities include multifocal
hepatocellular carcinoma, biliary tract carcinoma or metastatic disease.
Evaluation of intestinal tract markedly limited without oral contrast, cannot exclude intestinal tract mass.
Small simple left renal cysts and additional subcentimeter low-attenuation left renal lesion too small to characterize.
Prostate gland at least top normal in size.
Suspected indeterminate approximate 0.8 cm left adrenal nodule.
MRI abd
1. Multiple space occupying liver lesions with the largest measuring 9.6 cm in the right hepatic lobe, most suspicious for hepatic metastases. Hepatocellular carcinoma or cholangiocarcinoma with satellite lesions would be an alternative
consideration.
2. Circumferential wall thickening and signal alteration of the distal esophagus above the gastroesophageal junction. While findings could be related to inflammatory changes of a small hiatal hernia, a distal esophageal malignancy may be present.
Consider direct visualization/upper endoscopy for further characterization.

1. Suspected metastatic liver disease
Suspected primary esophageal cancer
-CT c/a/p findings as above
-MRI abd showing DENICE in liver with potential primary in distal esophagus vs billary tract
-AFP neg/ Hep panel & other tumor markers pending,.
-GI planning to do EGD today
-Plan for possible liver biopsy as well based on EGD findings,
-Maintain on oral oxycodone with PRN dialudid for pain control
2. Paroxysmal afib w RVR
-off of cardiazem drip, on oral cardizem 120mg/d
-started on oral rate control med
-low CHADvasc and no indication for AC
-Cardiology help appreciated
3. Anxiety
-provide xanax prn
-resume back home medication of nefazodone
4. H/o depression
-on depakote
DVT Px: LMWH
Full code
Transfer to med/surg
Anticipated Discharge: 24 - 48 hours
Subjective/Interval History
-
Date of Service: June 23, 2024
still have pain in the side
no nausea/vomiting
Objective Data
-
Labs:
Laboratory Results
06/23/24 06/23/24
05:27 06:09
WBC Cancelled 8.8
Hgb Cancelled 14.7
Hct Cancelled 42.6
Plt Count Cancelled 267
PT Pending
INR Pending
Sodium 139
Potassium 4.9
Chloride 102
Carbon Dioxide 25
BUN 18
Creatinine 1.0
Glucose 92
Calcium 9.2
Total Bilirubin 0.6
AST 33
ALT 29
Alkaline Phosphatase 79
Vital Signs:
Vital Signs
Temp Pulse Resp BP Pulse Ox
97.9 F 83 14 146/100 99
06/23/24 07:28 06/23/24 08:30 06/23/24 06:00 06/23/24 08:30 06/22/24 18:00
I&O
10/06/23/24 06/24/24
06:59 06:59 06:59
Intake Total 240 / 240
Output Total 1250 / 1250
Balance -1010 / -1010
Review of Systems
-
Respiratory: Reports No Symptoms
Cardiac: Reports No Symptoms
Abdomen/GI: Reports Abdominal Pain; Denies Nausea or Vomiting
Physical Exam
-
General: Comfortable; Negative Appears in Distress
HEENT: Negative Oxygen
Neuro: Awake, Alert and Oriented
--- NOTE | 2024-06-23 10:14 | W.PN.CD ---
Today's Communication / Plan
-
Continue PO Diltiazem
We will sign off at this time.
Please call back if afib recurs.
Please let us know when patient is being discharged and we will schedule follow-up
Impression / Plan
-
AFIB: new diagnosis
-in setting of acute pain/stress
-appears to be paroxysmal as there are some brief periods of SR on monitor
-initially on dilt drip, no PO
-[id number] score is 0, so OAC not required at this time
-TSH WNL, echo LVEF 60%, no valvular disease
Abdominal pain: severe yesterday, now appears comfortable
-getting pain meds
-Liver lesions: concerning for malignancy- plan is MRI today for further evaluation
-work-up per IM
Anxiety, depression:
-takes divalproex and nefazodone as OP
Subjective: Out of afib at 5pm yesterday. No events on tele since. No CV complaints this AM.
Physical Exam
Vital Signs/Labs
Vital Signs
Temp Pulse Resp BP Pulse Ox
97.9 F 83 14 146/100 99
06/23/24 07:28 06/23/24 08:30 06/23/24 06:00 06/23/24 08:30 06/22/24 18:00
06/22/24 06/23/24 06/24/24
06:59 06:59 06:59
Actual Weight 83.5 kg
06/23/24 06:09
06/23/24 05:27
TSH 4.11 uIU/ml (0.47-4.68) 06/22/24 05:04
06/21/24 06/21/24
17:00 17:00
Yqk-L-Tbdlcimwkyo Pept 585 Cancelled
LAB Results
06/21/24 06/21/24 06/22/24
17:00 23:16 05:04
Troponin I < 0.012 < 0.012 < 0.012
Physical Exam
Constitutional: No acute distress and Comfortable
Cardiovascular: Rhythm & rate is regular, Pedal edema is absent, JVD pressure is normal, S1S2 is normal and Murmur/rub/gallop absent
Respiratory: Respiratory effort normal and Lungs clear to auscul.
Data Reviewed
-
Date of Service: June 23, 2024
Medical Decision Making: Reviewed Test Results, Independent Historian Assessment, Test Interpretation and Review of Case with other Provider
EKG: Tracing Personally Visualized and interpreted
Echo: Report Reviewed by me
Labs: Labs Reviewed by me
Total Time Spent with Patient (in minutes): 35
[2024-06-23] MEDS: NON-FORMULARY ITEM 50 MG PO (11:48)
[2024-06-23] MEDS: MIRALAX 17 GRAMS PO (11:56)
--- NOTE | 2024-06-23 13:22 | PTCARENOTE ---
Rec'd pt this AM. Pt returned from EGD tearful, family arrived at bedside also tearful. Provided support to pt upset over new diagnosis metastatic cancer. vital signs stable. Pt requesting to go home today to follow up outpatient with oncology. RN
sent request to medical team. awaiting update.
[2024-06-23] MEDS: DELTASONE 20 MG PO (14:18)
[2024-06-23] MEDS: BENADRYL 25 MG PO (14:18)
[2024-06-23] MEDS: DULCOLAX 10 MG RECTAL (14:18)
--- NOTE | 2024-06-23 14:34 | CM ---
Patient with Dx esophageal mass, suspected metastatic liver disease.
Met with patient who was preparing for discharge.
The patient says he feels ready for discharge home today.
A family member will provide transport home.
No CM d/c needs identified.
Plan home today.
--- NOTE | 2024-06-23 15:59 | PTCARENOTE ---
Pt discharged to home. RN reviewed in detail discharge instructions including follow up appointments to be made and new medications plus changes to current medications. Pt read back the instructions to RN.
--- NOTE | 2024-06-23 16:05 | W.DCSUMMARY ---
Discharge Summary
Discharge Data
Date of Admission: 06/21/24
Date of Discharge: 06/23/24
-
Pending Results: No
Hospital Course
Discharging Physician : Dr Bill Odell
Disposition : Home
Primary care physician : Dr Dioni Monroy
Principal Discharge diagnosis :
Distal esophageal mass with suspected metastatic disease of the
Paroxysmal atrial fibrillation with rapid ventricular rate
Chronic Discharge diagnosis :
Anxiety/depression
Hospital Course :
Patient is 64-year-old male with no mentioned past medical history came to ER for having right upper abdomen mild pain, this was not associated with any nausea vomiting fever chills. Patient underwent CT chest abdomen pelvis in ER which showed
suspected liver mass with potentially metastatic disease versus primary liver cancer. A follow-up MRI abdomen was done showing space-occupying lesion in liver with potential primary distal esophagus. Oncology and GI was involved in care.
AFP/hepatitis panel were negative. Patient underwent an EGD which showed esophageal mass which was biopsied. Postprocedure patient was recommended to be maintained on soft diet. Oncology also recommended short course of oral prednisone to help
with malignancy related esophageal inflammation/dysphagia.
Patient also had new paroxysmal A-fib with rapid ventricular rate and required to be on Cardizem drip. Cardiology was involved in care and due to lower JR-vasc score patient did not warrant any need of anticoagulation . Patient was able to be
transition to diltiazem at discharge.
Patient to follow-up with GI and oncology in office.
Important imaging findings :
None
Procedure findings :
None
Discharge Plan
-
Patient Disposition: Home (Routine Discharge)
Discharge Diagnosis/Procedures: Distal esophageal mass, suspected metastatic disease of liver
Condition: Fair
Diet: Other diet
Additional Diets: Mechanical soft diet
Activity: As tolerated
Driving Restrictions: As prior to admission
Bathing Restrictions: OK to Shower
Referrals:
Dioni Monroy MD [Family Provider] - in one week
Allen Walters MD [Active] - in one to two weeks
Prescriptions:
New
diltiazem HCl 120 mg Capsule,Extended Release 24hr
120 mg PO DAILY Qty: 30 2RF
oxycodone 10 mg Tablet
10 mg PO Q4HPRN PRN (Reason: mod sev pain) Qty: 15 0RF
Rx Instructions:
Take Half tablet for mod pain
prednisone 20 mg tablet
20 mg PO DAILY Qty: 7 0RF
Continued
divalproex 500 mg Tablet,Delayed Release (Dr/Ec)
1,000 mg PO DAILY
zolpidem [Ambien] 10 mg Tablet
10 mg PO HS PRN (Reason: sleep)
Changed
nefazodone 50 mg tablet
25 mg PO DAILY Qty: 0 0RF
Discharge Orders:
Discharge Patient (As Directed); Ordered 06/23/24
Ordered By: Bill Odell
Discharge Date and Time
Discharge Date/Time: 06/23/24 16:07
Print Language: [place] IRISH
[2024-06-23 18:40] LABS: Hepatitis B Surface Antigen Negative (Negative)
[2024-06-23 18:41] LABS: Hepatitis B Core Ab, IgM Negative (Negative)
[2024-06-23 18:58] LABS: Hepatitis B Core Ab, Total Negative (Negative); Hepatitis B Surface Antibody Negative; Hepatitis C Antibody Negative (Negative)
[2024-06-25 03:18] LABS: CA 19-9 <2 U/mL (<=35)
== END 2024-06-23 16:07 | disposition home or self-care (01) | DRG 437 ==
LOC: IMU 17:34
PROVIDERS: Nurse Practitioner Family; Physician Assistant; ADMITTING PHYSICIAN Internal Medicine; ATTENDING PHYSICIAN Hospitalist; CONSULT PHYSICIAN Internal Medicine; CONSULT PHYSICIAN Internal Medicine Gastroenterology; CONSULT PHYSICIAN Internal Medicine Hematology & Oncology; EMERGENCY PHYSICIAN Emergency Medicine; FAMILY PHYSICIAN Family Medicine
PROC: 0DB68ZX Excision of Stomach, Via Natural or Artificial Opening Endoscopic, Diagnostic (ICD-10-PCS; 2024-06-23)
DX: C22.0 Liver cell carcinoma (principal); I48.0 Paroxysmal atrial fibrillation; C22.1 Intrahepatic bile duct carcinoma; N28.1 Cyst of kidney, acquired; F41.9 Anxiety disorder, unspecified; F32.A Depression, unspecified; K29.70 Gastritis, unspecified, without bleeding; R93.3 Abnormal findings on diagnostic imaging of other parts of digestive tract
CPT/HCPCS: 88305; 71275; 74174; 74183; 76700; 80048; 80053; 82105; 82248; 82378; 83036; 83690; 83880; 84443; 84484; 85025; 85027; 86301; 86704; 86705; 86706; 86803; 87340; 88342; 88360; 93005; 93306; 96361; 96374; 96375; 99285; A9575; Q9967

== ENCOUNTER → 2024-08-10 07:46 | Outpatient (REF) | payer OTHER, SELFPAY | LOC: PET 07:46 | PROVIDERS: ATTENDING PHYSICIAN Internal Medicine Hematology & Oncology | DX: C78.7 Secondary malignant neoplasm of liver and intrahepatic bile duct (principal); C15.5 Malignant neoplasm of lower third of esophagus | CPT/HCPCS: 78815; A9552 ==

== ENCOUNTER 2025-04-19 09:41 | Emergency (ER) | payer BC, SELFPAY ==
[2025-04-19] VITALS (7 sets, daily range): BP systolic 112–141; BP diastolic 69–89
--- NOTE | 2025-04-19 10:27 | ED.GENMED ---
History of Present Illness
<JUN Mills - Last Filed: 04/19/25 17:07>
General
Chief Complaint: Chest Pain
Source: patient
Exam Limitations: none
Time Seen by Provider: 04/19/25 10:06
Nursing documentation reviewed up to this point in time: agreed with
History of Present Illness
History of Present Illness:
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 He reports around 815 this morning
he was sitting at work and felt sudden pain across his chest into his back. It lasted for 30 minutes. He had no associated shortness of breath diaphoresis or nausea. He had old oxycodone and did take that at 830 this morning he is presently
asymptomatic
He does not feel like this is reflux. He denies any recent injury. Denies any recent cough fever chills
He is on Eliquis
Though he is currently on immunotherapy at the present time that has been stopped because he is on steroids for' lung disease.' He believes they plan to restart immunotherapy after steroids.
Phy Exam
<JUN Mills - Last Filed: 04/19/25 17:07>
General Physical Exam
General Presentation: no apparent distress
General age: appears stated age
General Skin: warm and dry
General Habitus: normal
General Mental: alert
General Hydration: appears well hydrated
Cardiovascular Exam
Cardiovascular Exam: no murmur, normal peripheral pulses and bradycardia
Pulmonary Exam
Pulmonary Exam: lungs clear and no respiratory distress
Neurological Exam
Neurological Exam: alert and oriented x3
Musculoskeletal Exam
Musculoskeletal Exam: full ROM
Skin Exam
Skin Exam: normal color and warm/dry
Psychiatric Exam
Psychiatric Exam: normal mood/affect
Scores
<JUN Mills - Last Filed: 04/19/25 17:07>
Heart Score for Chest Pain Patients
STEMI patient?: Not applicable
Course
<JUN Mills - Last Filed: 04/19/25 17:07>
Orders/Labs/Results
Orders:
Orders
04/19/25 09:42
EKG [Electrocardiogram (*1)] Urgent
Reason for Study: Chest Pain
EKG- Treatment ONCE
04/19/25 10:29
Cardiac Monitoring- Treatment ONCE
IV Insert/Care/Rem.- Treatment PRN
04/19/25 10:41
CT Angio Chest W/Wo Iv Contast [CT Chest Angio W/wo Iv Contras] Urgent
Comment:
Reason For Exam: cp radiating to back
04/19/25 11:14
Complete Blood Count/With Diff Urgent
Comprehensive Metabolic Panel Urgent
Troponin I Urgent
04/19/25 11:56
EKG- Treatment ONCE
04/19/25 14:00
Electrocardiogram (*1) Urgent
Reason for Study: Chest Pain
04/19/25 14:13
Troponin I Urgent
04/19/25 15:15
EKG- Treatment ONCE
04/19/25 15:58
Troponin I Urgent
04/19/25 16:00
Electrocardiogram (*1) Urgent
Reason for Study: Chest Pain
Abnormal Lab Results
04/19/25
11:14
WBC 12.1 H 10^3/uL
(4.8-10.8)
RBC 4.19 L 10^6/uL
(4.70-6.10)
MCV 97.4 H fL
(80.0-94.0)
MCH 31.7 H pg
(27.0-31.0)
MCHC 32.6 L g/dL
(33.0-37.0)
RDW 15.7 H %
(11.5-14.5)
Abs Immat Gran (auto) 0.3 H 10^3/uL
(0-0.05)
Absolute Neuts (auto) 9.8 H 10^3/uL
(1.4-6.5)
Absolute Monos (auto) 0.7 H 10^3/uL
(0.1-0.6)
Immature Gran % 2.3 H %
(0-0.5)
Neutrophils % 81.7 H %
(42.2-75.2)
Lymphocytes % 9.8 L %
(20.5-51.1)
BUN 40 H mg/dl
(9-20)
Glucose 112 H mg/dl
(70-99)
Total Protein 5.9 L g/dl
(6.3-8.2)
04/19/25 11:14
04/19/25 11:14
Vital Signs
Initial and Last Documented VS:
Initial Vital Signs
Temp Pulse Resp BP Pulse Ox
98.1 F 48 16 136/70 94
04/19/25 09:52 04/19/25 09:52 04/19/25 09:52 04/19/25 09:52 04/19/25 09:52
Last Documented Vital Signs
Temp Pulse Resp BP Pulse Ox
98.1 F 42 16 112/71 98
04/19/25 09:52 04/19/25 16:02 04/19/25 16:02 04/19/25 16:02 04/19/25 16:02
Elevator Technician consulted with Physician
Elevator Technician consulted with physician?: Yes (Hipolito )
Name of Physician Consulted: Hipolito
<Lauro Mcmillan MD - Last Filed: 04/19/25 14:38>
Orders/Labs/Results
Orders:
Orders
04/19/25 09:42
EKG [Electrocardiogram (*1)] Urgent
Reason for Study: Chest Pain
EKG- Treatment ONCE
04/19/25 10:29
Cardiac Monitoring- Treatment ONCE
IV Insert/Care/Rem.- Treatment PRN
04/19/25 10:41
CT Angio Chest W/Wo Iv Contast [CT Chest Angio W/wo Iv Contras] Urgent
Comment:
Reason For Exam: cp radiating to back
04/19/25 11:14
Complete Blood Count/With Diff Urgent
Comprehensive Metabolic Panel Urgent
Troponin I Urgent
04/19/25 11:56
EKG- Treatment ONCE
04/19/25 14:00
Electrocardiogram (*1) Urgent
Reason for Study: Chest Pain
04/19/25 14:13
Troponin I Urgent
04/19/25 15:15
EKG- Treatment ONCE
04/19/25 15:58
Troponin I Urgent
04/19/25 16:00
Electrocardiogram (*1) Urgent
Reason for Study: Chest Pain
Abnormal Lab Results
04/19/25
11:14
WBC 12.1 H 10^3/uL
(4.8-10.8)
RBC 4.19 L 10^6/uL
(4.70-6.10)
MCV 97.4 H fL
(80.0-94.0)
MCH 31.7 H pg
(27.0-31.0)
MCHC 32.6 L g/dL
(33.0-37.0)
RDW 15.7 H %
(11.5-14.5)
Abs Immat Gran (auto) 0.3 H 10^3/uL
(0-0.05)
Absolute Neuts (auto) 9.8 H 10^3/uL
(1.4-6.5)
Absolute Monos (auto) 0.7 H 10^3/uL
(0.1-0.6)
Immature Gran % 2.3 H %
(0-0.5)
Neutrophils % 81.7 H %
(42.2-75.2)
Lymphocytes % 9.8 L %
(20.5-51.1)
BUN 40 H mg/dl
(9-20)
Glucose 112 H mg/dl
(70-99)
Total Protein 5.9 L g/dl
(6.3-8.2)
04/19/25 11:14
04/19/25 11:14
Vital Signs
Initial and Last Documented VS:
Initial Vital Signs
Temp Pulse Resp BP Pulse Ox
98.1 F 48 16 136/70 94
04/19/25 09:52 04/19/25 09:52 04/19/25 09:52 04/19/25 09:52 04/19/25 09:52
Last Documented Vital Signs
Temp Pulse Resp BP Pulse Ox
98.1 F 42 16 112/71 98
04/19/25 09:52 04/19/25 16:02 04/19/25 16:02 04/19/25 16:02 04/19/25 16:02
<JUN Mills - Last Filed: 04/19/25 17:07>
MDM/Problems Addressed
Differential Diagnosis Includes:
Not limited to muscular pain ACS PE
MDM/Problems Addressed:
As documented patient is a 65-year-old male with history of esophageal cancer with mets to liver presented for episode of chest pain that radiate to his back. This occurred while sitting at work. He is followed at [facility]. He does have a
history of A-fib and is on Cardizem and anticoagulation. Patient presents awake alert no acute distress initial cardiac troponin unremarkable.
patient's heart rate has been in the 40s however he is asymptomatic and denies any lightheaded dizziness. His blood pressure stable. CAT scan was done negative for dissection, aneurysm no PE.
Second trop is negative ( 0.014 and 3rd trop 0.015 )he has been asymptomatic here in the ER no acute distress. He was evaluated physician.
Heart rate however still running in the 40s attempted to call his thermometer production worker however no callback. As discussed ED physician will have patient hold Cardizem until he speaks with his doctor regarding bradycardia.
Patient states he he in fact has appoint with his thermometer production worker in 2 days at [facility].
Call placed to his thermometer production worker group however no return call.
Chronic conditions affecting care:
Esophageal cancer with mets to liver A-fib CHF
<JUN Mills - Last Filed: 04/19/25 17:07>
*Radiology
Radiology exam reviewed: radiology read reviewed
*Pulse Oximetry
SaO2: 94
Oxygen Mode of Delivery: Room air
Patient hypoxic: no
*Critical Care Note
Total Time (30-74mins, 75-104mins- exclusive of procedures): Not Applicable
ED Attending Note
<JUN Mills - Last Filed: 04/19/25 17:07>
-
Portions of this chart may have been created with voice recognition software.� Occasional wrong word or��sound alike� substitutions may have occurred due to the inherent limitations of voice recognition software.
<Lauro Mcmillan MD - Last Filed: 04/19/25 14:38>
ED Attending Note
Patient seen and examined by attending physician: Yes
I performed the substantive portion of visit, reviewed & personally made and approve the management plan that is documented in note by myself or SHAKIR.: Yes
ED Attending Note:
65-year-old male being treated for esophageal CA with metastasis. Sudden onset of mid chest pain to the back at rest at about 8 AM. Currently resolved. No pleuritic pain. Patient currently feels fine.
On exam patient is nontoxic in no distress. Warm and dry. Perfusing well. Lungs clear and equal. Heart bradycardic and regular no murmur. Abdomen soft and nontender. Warm and dry. Nonfocal.
EKG bradycardic at 48. No acute changes. Monitor will go down to low 40s. However asymptomatic. Workup for dissection and cardiac. Bradycardia is likely a secondary issue as he is clinically stable not hypotensive and in no distress.
No dissection or acute serious findings on CT scan. Patient is remaining asymptomatic and nontoxic. No further episodes. He has remained bradycardic about 40. States his baseline heart rate is in the 50s. He has had no syncope or presyncopal
episodes. He has no blood pressure changes. Await repeat troponin. If negative he can be discharged. We are trying to contact his thermometer production worker and oncologist. May need to stop his Cardizem for now
Discharge Plan
Departure
Patient Disposition: Home (Routine Discharge)
Date of Disposition: 04/19/25
Time of Disposition: 16:59
Patient with high blood pressure during this ER visit?: No
Condition: Fair
Covid-19: Not Applicable
Discharge Problem:
Chest pain
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
Prescriptions:
No Action
divalproex 500 mg Tablet,Delayed Release (Dr/Ec)
1,000 mg PO DAILY
zolpidem [Ambien] 10 mg Tablet
10 mg PO HS PRN (Reason: sleep)
diltiazem HCl 120 mg Capsule,Extended Release 24hr
120 mg PO DAILY Qty: 30 2RF
oxycodone 10 mg Tablet
10 mg PO Q4HPRN PRN (Reason: mod sev pain) Qty: 15 0RF
Rx Instructions:
Take Half tablet for mod pain
prednisone 20 mg tablet
20 mg PO DAILY Qty: 7 0RF
nefazodone 50 mg tablet
25 mg PO DAILY Qty: 0 0RF
Referrals:
Dioni Monroy MD [Family Provider, Family Practice]
Activity Restrictions/Additional Instructions:
Your workup today was negative. Your lab work was unremarkable and your CAT scan was negative for any acute findings. please follow-up with your thermometer production worker as scheduled on Thursday for reevaluation of your symptoms as well as reevaluation and for
reevaluation of your low heart rate. In the meantime please stop your Cardizem. Continue your Eliquis.
Return to the ER for any worsening of symptoms.
Interventions
Interventions:
*Risk Screen - Suicide Last Done: 04/19/25 09:56
*General Assessment Last Done: 04/19/25 09:56
*Neglect/Abuse Screening Last Done: 04/19/25 09:56
*ED- Fall Risk Assessment Last Done: 04/19/25 11:37
*ED COVID-19 Vaccine History Last Done: 04/19/25 09:56
ED- Cardiac Assessment Last Done: 04/19/25 11:37
Discharge Date and Time
Print Language: SINHAL[place]
[2025-04-19 11:30] LABS: Hematocrit 40.8 % (39.0-52.0); Hemoglobin 13.3 g/dL (13.0-18.0); Mean Corp Hgb Conc. 32.6 g/dL (33.0-37.0); Mean Corpuscular Volume 97.4 fL (80.0-94.0); Nucleated Red Blood Cells % 0 % (-); Platelet Count 162 10^3/uL (130-400); Red Cell Dist. Width 15.7 % (11.5-14.5)
[2025-04-19 11:39] LABS: ALT (SGPT) 32 U/L (0-50); AST (SGOT) 20 U/L (17-59); Albumin 3.6 g/dl (3.5-5.0); Alkaline Phosphatase 84 U/L (38-126); Blood Urea Nitrogen 40 mg/dl (9-20); Calcium 8.6 mg/dl (8.4-10.2); Carbon Dioxide 30 mmol/L (22-30); Chloride 103 mmol/L (98-107); Glucose 112 mg/dl (70-99); Potassium 4.4 mmol/L (3.5-5.1); Sodium 136 mmol/L (135-145); Total Protein 5.9 g/dl (6.3-8.2); eGFR > 60.00
[2025-04-19 11:50] LABS: Troponin I < 0.012 ng/ml
[2025-04-19 14:49] LABS: Troponin I 0.014 ng/ml
[2025-04-19 16:37] LABS: Troponin I 0.015 ng/ml
== END 2025-04-19 17:30 | disposition home or self-care (01) ==
LOC: EMR 09:41
PROVIDERS: Nurse Practitioner; EMERGENCY PHYSICIAN Emergency Medicine; FAMILY PHYSICIAN Family Medicine
DX: R07.9 Chest pain, unspecified (principal); C15.9 Malignant neoplasm of esophagus, unspecified; C78.7 Secondary malignant neoplasm of liver and intrahepatic bile duct; I48.91 Unspecified atrial fibrillation; Z79.01 Long term (current) use of anticoagulants; I50.9 Heart failure, unspecified; Z79.60 Long term (current) use of unspecified immunomodulators and immunosuppressants
CPT/HCPCS: 99284; 71275; 80053; 84484; 85025; 93005; Q9967